=== PATIENT | female | born 1995 | race Caucasian/White ===

== ENCOUNTER 2018-07-28 10:44 | Emergency (ER) | payer OTHER ==
[~2018-07-28] VITALS: Ht 165.1 cm; Wt 78.5 kg
[~2018-07-28 10:44] MED LIST: PEPCID20 MG PO; PRENATAL CAPLE1 EACH PO; ZOFRAN4 MG PO
== END 2018-07-28 18:29 | disposition home or self-care (01) ==
LOC: ER 10:44
DX: R10.12 Left upper quadrant pain (principal)

== ENCOUNTER 2018-10-30 14:46 | Outpatient (CLI) | payer OTHER | END 2018-11-01 17:03 | disposition home or self-care (01) | LOC: OBS/DEL 14:46 | DX: O26.892 Other specified pregnancy related conditions, second trimester (principal); M54.5 Low back pain; Z34.82 Encounter for supervision of other normal pregnancy, second trimester ==

== ENCOUNTER 2019-01-26 06:47 | Inpatient (IN) | payer OTHER ==
[~2019-01-26] VITALS: Ht 165.1 cm; Wt 88.9 kg
[2019-01-26] MEDS ORDERED: PRENATAL TABLE1 EAC4 PO (07:16)
[2019-01-26] MEDS ORDERED: ZANTAC150 M3 PO (07:16)
== END 2019-01-28 16:10 | disposition home or self-care (01) | DRG 798 ==
LOC: OB/GYN 06:47 → LDR 06:47 → OB/GYN 19:41
PROVIDERS: ADMIT Obstetrics & Gynecology
PROC: 10E0XZZ Delivery of Products of Conception, External Approach (ICD-10-PCS; principal; 2019-01-26)
PROC: 4A0HXFZ Measurement of Products of Conception, Cardiac Rhythm, External Approach (ICD-10-PCS; 2019-01-26)
PROC: 0UL70ZZ Occlusion of Bilateral Fallopian Tubes, Open Approach (ICD-10-PCS; 2019-01-27)
DX: O80 Encounter for full-term uncomplicated delivery (principal); Z37.0 Single live birth; Z3A.38 38 weeks gestation of pregnancy; Z22.330 Carrier of Group B streptococcus; Z30.2 Encounter for sterilization